=== PATIENT | female | born 1960 | race Caucasian/White ===

== ENCOUNTER 2018-05-27 07:31 | Emergency (ER) | payer OTHER, SELFPAY ==
[2018-05-27 07:34] VITALS: BP 146/76; PULSE 99; RESP 15; TEMP 36.6; BMI 21.9
--- NOTE | 2018-05-27 07:49 | RAD_ITS ---
STUDY: X-RAY - PELVIS REASON FOR EXAM: Female, 57 years old. Left hip pain and groin pain after a fall. TECHNIQUE: One view of the pelvis was obtained. COMPARISON: Prior comparison studies are not available for review at this time. FINDINGS: There is a non-specific bowel gas pattern. Normal visualized soft tissue structures. There is diffuse demineralization of the osseous structures. The sacrum and iliac wings are obscured by bowel gas and stool. There is an acute comminuted displaced fracture of the left pubic bone that probably involves both the superior and inferior pubic rami. There are degenerative changes of the pubic symphysis with articular narrowing and sclerosis. Normal ischial tuberosities. There are osteoarthritic changes of the right femoral head with marginal osteophyte formation. There is osteoarthritic spur formation of the right acetabular rim. There is mild articular joint space narrowing of the right hip. Normal visualized left femoral head. Normal left acetabulum. Normal left hip joint. RAD/Pelvis 1 or 2 Views IMPRESSION: Acute comminuted displaced fracture of the left pubic bone. Electronically Signed: Harleen Reynolds MD at 8:32 EST , Service support ,
--- NOTE | 2018-05-27 07:52 | ED.VISSUMM ---
- ER Visit Summary Date of Service: 05/27/18 Chief Complaint: Left hip injury History of Present Illness: The patient is a 57 F who was at [employer] this morning performing a cleaning. She states that she lost her balance and fell down towards the left hip the bar came down over her mid to distal thigh forcing the hip and to abduction. She notes pain with movement of the hip. She states that the mid to distal thigh is not painful. She denies any other injuries Physical Examination: Afebrile vital signs are stable Gen: Well-nourished well-developed Head: Normocephalic atraumatic Eyes: Perrl EOMI ENT: TMs clear no rhinorrhea moist mucous membranes Neck: Supple no lymphadenopathy no JVD nontender CVS: Regular rate rhythm no murmurs normal S1-S2 Respiratory: No distress clear to auscultation bilaterally chest nontender Abdomen: Soft nontender nondistended normal bowel sounds no masses Back: Nontender Extremity: Tenderness over the medial thigh. She has pain with abduction. No pain with flexion extension. No pain with logroll. No deformities. Neurovascular intact distally Skin: Normal color no rash Neuro: alert orientated ?3 CN II-XII intact normal strength sensation reflexes Psych: Normal affect normal mood Test Results: X-rays of the pelvis were obtained. This demonstrated pubic rami fracture Emergency Department Course and Treatment: Patient is unable to do crutches due to her multiple sclerosis. Will use a walker. I will write for pain medication. Patient would like to see Dr. Wolfe in follow-up. Impression: 1. Left pubic rami fracture 2. Abductor muscle strain-left This note was generated with [employer] dictation software. It may contain incorrect words, spelling, and punctuation that were not noted in review of the chart prior to signing ED Disposition - Plan for ED Patient: Disposition: Home or Assisted Living Chief Complaint: Lower Extremity Injury Instructions: ED Fx Pelvis Prescriptions: Hydrocodone Bitart/Apap 5-325 [[place] 5MG-325MG] 1 tablet PO Q6H PRN PRN 3 Days #12 tablet PRN Reason: Pain Referrals: Stef Wolfe DO [STAFF PHYSICIAN] - As soon as possible
[2018-05-27] MEDS: Ibuprofen 600 MG Tablet PO (07:56)
== END 2018-05-27 08:50 | disposition home or self-care (01) ==
PROVIDERS: Emergency Provider Emergency Medicine; Family Provider Family Medicine; PCP Family Medicine
DX: S32.592A Other specified fracture of left pubis, initial encounter for closed fracture (principal); S76.812A Strain of other specified muscles, fascia and tendons at thigh level, left thigh, initial encounter; W22.8XXA Striking against or struck by other objects, initial encounter; Y93.B9 Activity, other involving muscle strengthening exercises; G35 Multiple sclerosis; Z87.891 Personal history of nicotine dependence
CPT/HCPCS: 72170; 99283

== ENCOUNTER → 2018-06-07 14:08 | Outpatient (CLI) | payer OTHER, SELFPAY ==
[2018-05-27 07:34] VITALS: BMI 21.9
--- NOTE | 2018-06-07 14:15 | CT_ITS ---
STUDY: CT PELVIS WITHOUT CONTRAST REASON FOR EXAM: Female, 57 years old. Pelvic fractures from injury. RADIATION DOSAGE (If Supplied By Facility): CTDIvol = ( 13.20 ) mGy, DLP = ( 369.16 ) mGycm TECHNIQUE: Transaxial imaging of the pelvis was performed with oral contrast, and without intravenous administration of contrast material. Multiplanar coronal and sagittal images were reformatted. Individualized dose optimization techniques were used for this CT. COMPARISON: Comparison is made with prior examination of the pelvis dated May 27, 2018. FINDINGS: Normal urinary bladder. Normal visualized small intestine. Normal visualized colon. There is no pelvic fluid. There is no pelvic mass lesion or lymphadenopathy. There is diffuse atherosclerotic calcification of the pelvic arteries. Normal abdominal wall. Nondisplaced fractures involving the medial aspect of the left superior and inferior pubic rami just lateral to the symphysis pubis. CT/Pelvis without IV Contrast IMPRESSION: Nondisplaced fractures involving the medial aspect of the left superior and inferior pubic rami. Electronically Signed: Toro Georges MD at 15:18 EST Tel [phone], Service support ,
--- OUTSIDE RECORDS SUMMARY | 2018-08-03 03:48 | XMS RPT_ITS ---
:1960 Author Organization [place] Care Team Providers Name Role Phone Tramaine Small Attending Unavailable Tramaine Small Referring Unavailable Josh Doe III Primary Care Unavailable Lamin Horn Attending Unavailable Josh Doe III Primary Care Unavailable PROBLEMS PROBLEMS DATE TYPE CONDITION / CODE ATTENDING STATUS SOURCE 05/27/2018 Unknown S32.599A - Other Lamin Horn Active [place] specified Community fracture of Hospital unspecified Repository pubis, initial encounter for closed fracture / S32.599A(ICD-10) PROCEDURES PROCEDURES No Procedure Records FoundRESULTS RESULTS PELVIS WITHOUT IV Observed: 06/07/2018 Status: F Source: [place] CONTRAST 2:15 PM [facility] REPOSITORY [facility] Imaging Services [address] [address] Pelvis without IV Contrast MR#: [id number] Acct: [id number] Name: TAYLA ALBARRAN Rep #: [id number] : 1960 F 57 From: Toro Georges MD PCP: Josh Doe III, MD Status: REG CLI Study: Pelvis without IV Contrast Date of Exam: 06/07/18 Exam# [id number] Ordering Dr: Tramaine Small MD STUDY: CT PELVIS WITHOUT CONTRAST REASON FOR EXAM: Female, 57 years old. Pelvic fractures from injury. RADIATION DOSAGE (If Supplied By Facility): CTDIvol = ( 13.20 ) mGy, DLP = ( 369.16 ) mGycm TECHNIQUE: Transaxial imaging of the pelvis was performed with oral contrast, and without intravenous administration of contrast material. Multiplanar coronal and sagittal images were reformatted. Individualized dose optimization techniques were used for this CT. COMPARISON: Comparison is made with prior examination of the pelvis dated May 27, 2018. FINDINGS: Normal urinary bladder. Normal visualized small intestine. Normal visualized colon. There is no pelvic fluid. There is no pelvic mass lesion or lymphadenopathy. There is diffuse atherosclerotic calcification of the pelvic arteries. Normal abdominal wall. Nondisplaced fractures involving the medial aspect of the left superior and inferior pubic rami just lateral to the symphysis pubis. CT/Pelvis without IV Contrast IMPRESSION: Nondisplaced fractures involving the medial aspect of the left superior and inferior pubic rami. Electronically Signed: Toro Georges MD at 15:18 EST Tel [phone], Service support , CC: Josh Doe III, MD; Tramaine Small MD Mother Superior: Signed EMERGENCY DEPARTMENT Observed: 05/30/2018 Status: F Source: [place] SUMMARY 2:54 PM [facility] REPOSITORY [facility] Medical Records Department [address] [place] [address] Emergency Department Summary 05/27/18 0752 MR#: [id number] Acct: [id number] Name: TAYLA ALBARRAN MIGUEL A Rep #: [id number] : 1960 57 From: Lamin Horn DO PCP: Cebul III MD,Josh Status: DEP ER - ER Visit Summary Date of Service: 05/27/18 Chief Complaint: Left hip injury History of Present Illness: The patient is a 57 F who was at [employer] this morning performing a cleaning. She states that she lost her balance and fell down towards the left hip the bar came down over her mid to distal thigh forcing the hip and to abduction. She notes pain with movement of the hip. She states that the mid to distal thigh is not painful. She denies any other injuries Physical Examination: Afebrile vital signs are stable Gen: Well-nourished well-developed Head: Normocephalic atraumatic Eyes: Perrl EOMI ENT: TMs clear no rhinorrhea moist mucous membranes Neck: Supple no lymphadenopathy no JVD nontender CVS: Regular rate rhythm no murmurs normal S1-S2 Respiratory: No distress clear to auscultation bilaterally chest nontender Abdomen: Soft nontender nondistended normal bowel sounds no masses Back: Nontender Extremity: Tenderness over the medial thigh. She has pain with abduction. No pain with flexion extension. No pain with logroll. No deformities. Neurovascular intact distally Skin: Normal color no rash Neuro: alert orientated 3 CN II-XII intact normal strength sensation reflexes Psych: Normal affect normal mood Test Results: X-rays of the pelvis were obtained. This demonstrated pubic rami fracture Emergency Department Course and Treatment: Patient is unable to do crutches due to her multiple sclerosis. Will use a walker. I will write for pain medication. Patient would like to see Dr. Wolfe in follow-up. Impression: 1. Left pubic rami fracture 2. Abductor muscle strain-left This note was generated with [employer] dictation software. It may contain incorrect words, spelling, and punctuation that were not noted in review of the chart prior to signing ED Disposition - Plan for ED Patient: Disposition: Home or Assisted Living Chief Complaint: Lower Extremity Injury Instructions: ED Fx Pelvis Prescriptions: Hydrocodone Bitart/Apap 5-325 [[place] 5MG-325MG] 1 tablet PO Q6H PRN PRN 3 Days #12 tablet PRN Reason: Pain Referrals: Stef Wolfe, DO [STAFF PHYSICIAN] - As soon as possible What to do if you have Problems For any increased pain, shortness of breath, bleeding, nausea or vomiting, chest pain, or any unexpected problems, contact your Primary Care Provider. Call [facility] ([phone]) or report to the closest Emergency Room. Call 911 if necessary. 05/30/18 1454 <Electronically signed by Lamin Horn DO> Date Lamin Horn DO Cosigner Signature (If Indicated): Date CC: Josh Doe III, MD PELVIS 1 OR 2 VIEWS Observed: 05/27/2018 Status: F Source: [place] 7:50 AM [facility] REPOSITORY [facility] Imaging Services [address] [place] [address] Pelvis 1 or 2 Views MR#: [id number] Acct: [id number] Name: TAYLA ALBARRAN MIGUEL A Rep #: [id number] : 1960 F 57 From: Harleen Reynolds MD PCP: Josh Doe III, MD Status: REG ER Study: Pelvis 1 or 2 Views Date of Exam: 05/27/18 Exam# [id number] Ordering Dr: Lamin Horn DO STUDY: X-RAY - PELVIS REASON FOR EXAM: Female, 57 years old. Left hip pain and groin pain after a fall. TECHNIQUE: One view of the pelvis was obtained. COMPARISON: Prior comparison studies are not available for review at this time. FINDINGS: There is a non-specific bowel gas pattern. Normal visualized soft tissue structures. There is diffuse demineralization of the osseous structures. The sacrum and iliac wings are obscured by bowel gas and stool. There is an acute comminuted displaced fracture of the left pubic bone that probably involves both the superior and inferior pubic rami. There are degenerative changes of the pubic symphysis with articular narrowing and sclerosis. Normal ischial tuberosities. There are osteoarthritic changes of the right femoral head with marginal osteophyte formation. There is osteoarthritic spur formation of the right acetabular rim. There is mild articular joint space narrowing of the right hip. Normal visualized left femoral head. Normal left acetabulum. Normal left hip joint. RAD/Pelvis 1 or 2 Views IMPRESSION: Acute comminuted displaced fracture of the left pubic bone. Electronically Signed: Harleen Reynolds MD at 8:32 EST , Service support , CC: Lamin Doe III, MD Mother Superior: Signed ALLERGIES ALLERGIES DATE TYPE / CODE NAME / CODE REACTION SEVERITY SOURCE 05/27/2018 Drug trifluoperaz Other Unknown [facility] Allergy/4160 [facility]/[id number] Hospital 90455(SNOMED 90(RXNORM) Repository CT) ENCOUNTERS ENCOUNTERS ADMIT/DISCHARGE ACCOUNT ADMITTING ENCOUNTER LOCATION SOURCE NUMBER CLASS 06/07/2018 [id number] Ambulatory [facility] 1 [facility] ing:CT Repository 05/27/2018/ [id number] Emergency [facility] 8 7 [facility] ing:ED Repository PAYERS PAYERS ENCOUNTER GUARANTOR PAYER SUBSCRIBER SOURCE 06/07/2018 JAKOB Parker Primary TAYLA Katzoster [id number] Insurance:MEDICAL MARCUMDOB: [facility] [id number] Number: Repository [id number]: [phone] [id number] [phone] () Date:2079-10-[address] [address]UL: 06/07/2018 Secondary NOT GIVENUNK [place] Insurance:SELF PAY [facility] Number: Effective Repository Date:2018-05-30 05/27/2018 JAKOB Parker Primary TAYLA GRADY [place] [id number] Insurance:[facility]ICAL [facility] WESTUMDOB: [facility] 1965[place] Number: Repository [id number]: [phone] [id number] [phone] () Date:9883-25-[address] [address]WP: 05/27/2018 Secondary NOT GIVENUNK [place] Insurance:SELF PAY [facility]: Effective Repository Date:2018-05-27
== END ==
PROVIDERS: Family Provider Family Medicine; PCP Family Medicine; Referring Provider Specialist; Visit Provider Specialist
DX: S32.82XA Multiple fractures of pelvis without disruption of pelvic ring, initial encounter for closed fracture (principal)
CPT/HCPCS: 72192

== ENCOUNTER 2020-01-26 19:04 | Emergency (ER) | payer OTHER, SELFPAY ==
[2020-01-26 19:05] VITALS: BP 142/82; PULSE 97; RESP 15; TEMP 36.7; O2SAT 98; BMI 24.7
--- NOTE | 2020-01-26 19:22 | ED.DCSUM_ITS ---
History of Present Illness Chief Complaint: Laceration Informant: Patient Narrative: Patient is a 59-year-old female with a past medical history of MS who presents to the emergency department for right pinky finger injury. She was in [place] this morning whenever her grandchild shut the door on her finger. Her finger was stuck on the hinge side of the door and frame. There is a laceration present. She put a Band-Aid over it and they drove back to [place]. She felt like the pain and swelling was getting worse so she decided to come to the emergency department. There is still some venous bleeding present. She denies any loss of sensation in the finger. He is right-handed at baseline. No other injury to the hand or elsewhere. No anticoagulation or antiplatelet therapy. Moving does make the symptoms worse. Past Medical History - Allergies and Home Meds Allergies/Adverse Reactions: Allergies trifluoperazine [From Stelazine] Allergy (Verified 01/26/20 19:07) Other STROKE LIKE SX Primary Care Physician: Josh Doe III, MD [Primary Care Provider] - Past Medical History: - - Multiple sclerosis Surgical History: no surgical history Smoking Status: Former smoker Review of Systems All systems negative except as indicated General: Denies: Chills, Fever ENT: Denies: Rhinorrhea Cardiovascular: Denies: Chest pain, Palpitations Respiratory: Denies: Dyspnea, Cough Gastrointestinal: Denies: Abdominal pain, Nausea, Vomiting Musculoskeletal: Reports: Swelling, Extremity Pain - Finger. Denies: Myalgias Skin: Reports: Wounds Neurological: Denies: Headache, Weakness Physical Exam Vital Signs/Narrative: Vital Signs Temp Pulse Resp BP Pulse Ox 01/26/20 19:05 98.0 F 97 15 142/82 H 98 Inital Vital Signs reviewed: Yes General: Well nourished, Well developed, No Acute Distress Head: Normocephalic, Atraumatic Eyes: Perrl, EOMI ENT: Moist mucous membranes, No rhinorrhea Neck: Supple Cardiovascular: Regular rate, Regular rhythm Respiratory: No distress, CTA bilaterally Abdomen: Nondistended Extremities: - - Right pinky finger has a laceration that wraps around the distal aspect from her nail to the ventral aspect. Venous oozing present. The tip of the finger does feel unstable. Skin: Normal color, No rash Neurological: Alert, Oriented x3, Normal Strength, Normal Sensation Psychological: Normal affect, Normal Mood Diagnostic/Tx/Re-eval - Medical Decision Making Patient presents the emerge department after having her finger slammed in a door around 730 this morning. On physical exam there is a deformity present with a laceration. Will obtain an x-ray to evaluate for open fracture. X-ray did show evidence of a comminuted fracture to the tuft. We will treat this as an open fracture. Given dose of Ancef here in the emergency department. Will send home with prescription for Keflex. Patient states her last tetanus shot was less than a year ago. Patient's laceration repaired and placed in a splint. Will discharge home in stable condition. She is to follow-up with [facility] and orthopedic surgery. She is to monitor for evidence of infection. If she develops any significant warmth, swelling or streaking up the hand she is to return to the emerge department immediately. She understands and is agreeable with this plan. Procedures Procedure(s): Laceration repair: Informed consent was obtained before procedure started. The appropriate timeout was taken. The area was prepped and draped in the usual sterile fashion. Local anesthesia was achieved using digital block with 4cc of lidocaine 1% without epinephrine. The wound was copiously irrigated with 250 cc normal saline. 4 5-0 Ethilon simple interrupted sutures were placed. Wound covered in antibiotic ointment and a dressing/splint was applied to the area and anticipatory guidance, as well as standard post procedure care, was explained. Return precautions are given. The patient tolerated the procedure well without any apparent complications. Unfortunately nail will probably be lost. The nail matrix seem to be damaged. Follow-up visit set for suture removal and evaluation of laceration. ED Disposition - Plan for ED Patient: Disposition: Home or Assisted Living Diagnosis: Open fracture of tuft of distal phalanx of finger Instructions: ED Fx Finger Open Prescriptions: Cephalexin [Keflex] 500 mg PO Q8 7 Days #21 cap Transmission Status: Pending to [facility] Referrals: Josh Doe III, MD [Primary Care Provider] - [facility] [Outside] - 2 Days for wound check Additional Instructions: Need suture removal in 7 to 10 days. Please monitor for evidence of infection.
--- NOTE | 2020-01-26 19:28 | RAD_ITS ---
STUDY: X-RAY - RIGHT HAND, ATTENTION WITH FINGER REASON FOR EXAM: Female, 59 years old. pt got her right pinky finger in a door, laceration on distal pinky finger TECHNIQUE: 3 view(s) of the finger were obtained. COMPARISON: None. FINDINGS: Normal metacarpal head. Normal metacarpophalangeal joint. Normal proximal phalanx. Normal middle phalanx. There is a comminuted displaced fracture of the distal phalangeal tuft. Normal proximal interphalangeal joint. Normal distal interphalangeal joint. RAD/Finger(s) Min 2 Views IMPRESSION: Comminuted displaced fracture of the fifth distal phalangeal tuft. Electronically Signed: Moises Russ MD at 19:49 EDT , Service support ,
[2020-01-26] MEDS: Cefazolin 1 GM/5 ML Vial IM (21:13)
[2020-01-26 21:27] VITALS: BP 149/85; PULSE 88; RESP 16; O2SAT 99
== END 2020-01-26 21:34 | disposition home or self-care (01) ==
PROVIDERS: Emergency Provider Emergency Medicine; PCP Family Medicine
DX: S62.636B Displaced fracture of distal phalanx of right little finger, initial encounter for open fracture (principal); W23.0XXA Caught, crushed, jammed, or pinched between moving objects, initial encounter; Y93.9 Activity, unspecified; Y92.832 Beach as the place of occurrence of the external cause; Y99.8 Other external cause status; G35 Multiple sclerosis; Z87.891 Personal history of nicotine dependence
CPT/HCPCS: 12001; 73140; 96372; 99283

== ENCOUNTER 2023-01-17 11:08 | Observation (INO) | payer OTHER, SELFPAY ==
[2023-01-17] VITALS (10 sets, daily range): BP systolic 128–159; BP diastolic 64–100; PULSE 66–101; RESP 16–20; TEMP 36.6–36.9; O2SAT 95–98; BMI 22.5; BMI 23.1
--- NOTE | 2023-01-17 11:15 | CT_ITS ---
STUDY: CTA HEAD AND NECK WITH CONTRAST REASON FOR EXAM: Female, 62 years old. Neuro deficit, acute, stroke suspected left facial droop, hx MS RADIATION DOSAGE (If Supplied By Facility): CTDIvol = ( 16.23 ) mGy, DLP = ( 601.01 ) mGycm TECHNIQUE: CT angiography was performed with a multi-detector CT scanner. Data acquisition was obtained from the skull base through the vertex following intravenous administration of IV 100mL Isovue-370. MIP images were reconstructed from the axial data set. Post-processing of the angiographic images was performed, with multiplanar reformation and 3D reconstruction. Individualized dose optimization techniques were used for this CT. COMPARISON: Head CT dated January 17, 2023. FINDINGS: Normal bilateral petrous carotid arteries. There is calcified plaque formation of the right cavernous carotid artery, with a mild stenosis (less than 50%). There is calcified plaque formation of the left cavernous carotid artery, with a mild stenosis (less than 50%). Normal right A1 segments of the anterior cerebral artery. Normal left A1 segments of the anterior cerebral artery. Normal intact anterior communicating artery (ACOM). Normal bilateral A2 segments of the anterior cerebral arteries. Normal right M1 and M2 segments of the middle cerebral arteries, with a normal M1 bifurcation. Normal left M1 and M2 segments of the middle cerebral arteries, with a normal M1 bifurcation. Normal right posterior communicating artery (PCOM). Normal left posterior communicating artery (PCOM). Normal bilateral vertebral arteries. Normal basilar artery with a normal basilar bifurcation. The visualized bilateral superior cerebellar (SCA) arteries are normal. Normal bilateral P1, P2 and visualized P3 segments of the posterior cerebral arteries. There is no demonstrated aneurysm of the [place]. AORTIC ARCH: There is atherosclerotic calcific plaque formation of the aortic arch and great vessels arising from the aortic arch, without a hemodynamically significant stenosis. There is a normal origin of the brachiocephalic, left common carotid, and left subclavian arteries. Normal origins of the brachiocephalic, left common carotid, and left subclavian arteries. RIGHT CAROTID ARTERIES: Normal right common carotid artery (CCA). Normal right common carotid bulb. Normal origin of the right internal carotid (ICA) artery without a hemodynamically significant stenosis. Normal visualized cervical portion of the right internal carotid artery. Normal origin of the right external carotid artery (ECA). LEFT CAROTID ARTERIES: Normal left common carotid artery (CCA). Normal left common carotid bulb. Normal origin of the left internal carotid (ICA) artery without a hemodynamically significant stenosis. Normal visualized cervical portion of the left internal carotid artery. Normal origin of the left external carotid artery (ECA). VERTEBRAL ARTERIES: Normal bilateral vertebral arteries. CT/STROKE CTA Head AND Neck W/Con IMPRESSION: 1. There is no demonstrated aneurysm of the [place] of [place]. There is no major vessel occlusion or hemodynamically significant stenosis. 2. Normal bilateral cervical carotid and vertebral arteries. N.B. : The above Results were Read Back by Cdoy Rios MD to Wally Alva DO, and understanding confirmed on 01/17/2023 11:47:22 (ET). Electronically Signed: Cody Rios MD at 11:49 EDT ,
--- NOTE | 2023-01-17 11:15 | CT_ITS ---
STUDY: STROKE PROTOCOL CT BRAIN WITHOUT CONTRAST REASON FOR EXAM: Female, 62 years old. Neuro deficit, acute, stroke suspected RADIATION DOSAGE (If Supplied By Facility): CTDIvol = ( ) mGy, DLP = ( ) mGycm TECHNIQUE: Transaxial CT imaging of the brain was performed without administration of intravenous contrast material. Individualized dose optimization techniques were used for this CT. COMPARISON: None. FINDINGS: Normal soft tissue structures. Normal calvarium. There is mild cerebral atrophy with widening of the extra-axial spaces and ventricular dilatation. There are areas of decreased attenuation within the white matter tracts of the supratentorial brain, consistent with microvascular disease changes. Normal basal ganglia and thalami. Normal brainstem. Normal cerebellum. There is no demonstrated asymmetric dense artery sign or sulcal effacement or parenchymal edema. There is no intracranial hemorrhage. There are no findings of an acute ischemic infarction. Normal visualized paranasal sinuses. ASPECTS Score for Acute Strokes: 10 CT/STROKE Brain/Head without Cont IMPRESSION: 1. Chronic ischemic and involutional changes of the brain. 2. Concern for stroke/positive symptomatology should be further evaluated with CT brain perfusion/CTA or MRI of the brain for further assessment. N.B. : The above Results were Read Back by Cody Rios MD to Wally Alva DO, and understanding confirmed on 01/17/2023 11:44:28 (ET). Electronically Signed: Cody Rios MD at 11:45 EDT ,
--- NOTE | 2023-01-17 11:16 | ED.VIS.STROK ---
HPI History of Present Illness Chief Complaint: Neuro S/Sx Informant: patient and spouse/S.O. Onset/Context/Timing Onset: Yesterday Narrative Narrative: Presenting here with significant other concerns for left lip droop noted 6 AM this morning 5 hours ago. States 3 PM noted some off on her left face however did not note any drooping at that time. No headaches. No visual changes. No hemiparesis. Denies stroke history. History of MS with chronic bilateral lower extremity weakness right greater than left EMS with a walker. Denies any stroke history. No paresthesias. Prior similar symptoms: No PFSH PFSH Medical History (Updated 01/17/23 @ 12:[address] Wally Alva DO) Multiple sclerosis Home Medications NK 01/17/23 [History Last Taken Unknown] Allergy/AdvReac Type Severity Reaction Status Date / Time trifluoperazine Allergy Other Verified 01/26/20 19:07 [From Stelazine] Social History Smoking Status: Former smoker ROS ROS ED Constitutional Constitutional ED: Denies chills, fever(s) or sweats Eyes Eyes: Denies change in vision ENT ENT ED: Denies dysphagia or sore throat Cardiovascular Cardiovascular: Denies chest pain, leg edema, palpitations or racing heartbeat Respiratory/Chest Respiratory/Chest: Denies cough, dyspnea or dyspnea on exertion Gastrointestinal Gastrointestinal: Denies abdominal pain, diarrhea, nausea or vomiting Genitourinary Genitourinary ED: Denies dysuria, hematuria or urinary frequency Musculoskeletal Musculoskeletal: Denies back pain, extremity pain or neck pain Integumentary Denies rash or wounds Neurologic Neurologic: Reports other Details: Left lip droop ; Denies headache(s), paresthesias or weakness EXAM Physical Exam Const Vital Signs: 01/17/23 11:10 01/17/23 11:27 01/17/23 11:29 Temperature 97.8 F Temperature Source Temporal Pulse Rate 101 H Respiratory Rate 20 H Blood Pressure 149/87 H Blood Pressure Mean 107 Pulse Ox 97 95 Oxygen Delivery Method Room Air Room Air 01/17/23 11:45 Temperature Temperature Source Pulse Rate 84 Respiratory Rate 19 H Blood Pressure 154/100 H Blood Pressure Mean 118 Pulse Ox 97 Oxygen Delivery Method Room Air Positive well nourished and well developed General Appearance ED: well developed and NAD HEENT Reports moist mucous membranes normocephalic and atraumatic Eyes PERRL, EOMs intact bilaterally and conjunctivae normal General Eye ED: Yes normal appearance of both eyes Neck no lymphadenopathy and supple General: Negative for tenderness Chest Wall Chest: Negative for tenderness Resp normal respiratory effort and normal air movement Effort and Inspection: symmetric chest movement; Negative for respiratory distress Cardio regular rate, regular rhythm and no murmurs Peripheral Pulses: pulses 2+ throughout GI normal to inspection, nondistended, normoactive bowel sounds and non-tender Palpation: Negative for guarding or rebound tenderness present Back/Spine no CVA tenderness and no thoracic nor lumbar tenderness Extremity normal to inspection General Extremety ED: Negative for edema or tenderness General Extremity: Negative for edema Neuro oriented x3 and no sensory deficits noted Neuro Narrative: Minimal left lip droop. There is bilateral lower extremity drifting however chronic. NIH of 1 with new droop symptoms. Sensorium / Orientation: awake and alert Skin no rashes or lesions noted and no wounds MDM MDM MDM Narrative Medical decision making narrative: Interventions / MDM: Differential diagnosis: CVA, multiple sclerosis Diagnosis considered but do not suspect: N/A My EKG interpretation: Sinus rate of 84, no ST or T wave changes Imaging independently reviewed and interpreted by myself: CT brain: No acute process also read by radiology. CT angiogram and discussion with radiology no acute process mild calcification internal carotids. External documents reviewed: N/A Test considered but not ordered:N/A ED course: Patient new symptoms with NIH of 1. Symptoms noted 3 PM yesterday less than 20 hours ago, with new droop noting 5 hours ago. Stroke team was activated. Patient evaluated by neurology Dr. Antonette Garzon, discussion bedside through the monitor not a candidate for TNK due to timeframe. There is no LVO. She recommend mission for stroke work-up with MRI studies with and without contrast due to her MS to rule out a flare. Patient does not take daily medications. She has had MS since 1985. She states her last MRI was in 2019 with no acute new changes per patient's history. No steroids unless MRI has concerns for worsening MS findings. Laboratory studies stable. Discussed with hospitalist service for admission. Re-evaluation: stable Disposition discussed with patient/family/significant other: Patient and significant other Case discussed with consulting clinician: Stroke neurologist Dr. Antonette Garzon, hospitalist, Dr. Richard This note was generated with [employer] dictation software. It may contain incorrect words, spelling, and punctuation that were not noted in checking the note before signing. Lab Data Attestation: I reviewed the patient's lab results. Labs: Laboratory Results - last 24 hr 01/17/23 01/17/23 11:28 11:30 WBC 11.1 H RBC 4.53 Hgb 14.5 Hct 43.4 MCV 95.8 MCH 32.0 MCHC 33.4 RDW Std Deviation 49.3 H RDW Coeff of [place] 14.0 Plt Count 463 H MPV 9.3 Immature Gran % (Auto) 0.500 Neut % (Auto) 66.8 Lymph % (Auto) 23.5 [place] % (Auto) 7.1 Eos % (Auto) 0.9 Baso % (Auto) 1.2 H Absolute Neuts (auto) 7.4 Absolute Lymphs (auto) 2.60 Nucleated RBC % 0 PT 12.8 INR 1.0 APTT 27.6 Sodium 141 Potassium 3.7 Chloride 109 H Carbon Dioxide 30.0 Anion Gap 2 L BUN 14 Creatinine 0.62 Estim Creat Clear Calc 79.16 Est GFR (MDRD) Af Amer 125 Est GFR (MDRD) Non-Af 103 BUN/Creatinine Ratio 22.6 H Glucose 88 Calcium 9.4 Troponin I High Sens 4 POC Glucose 85 Radiography Diagnostic Testing: Clinical Impression(s) from Imaging Studies Brain CT 01/17/23 11:15 IMPRESSION: 1. Chronic ischemic and involutional changes of the brain. 2. Concern for stroke/positive symptomatology should be further evaluated with CT brain perfusion/CTA or MRI of the brain for further assessment. N.B. : The above Results were Read Back by Cody Rios MD to Wally Alva DO, and understanding confirmed on 01/17/2023 11:44:28 (ET). Electronically Signed: Cody Rios MD at 11:45 EDT , ADDENDUM: 01/17/23 1152 IMPRESSION: 1. Chronic ischemic and involutional changes of the brain. 2. Concern for stroke/positive symptomatology should be further evaluated with CT brain perfusion/CTA or MRI of the brain for further assessment. N.B. : The above Results were Read Back by Cody Rios MD to Wally Alva DO, and understanding confirmed on 01/17/2023 11:44:28 (ET). Electronically Signed: Cody Rios MD at 11:45 EDT Reading Location ID and State: [facility] / [place] , Service support , Head/Neck CTA 01/17/23 11:15 IMPRESSION: 1. There is no demonstrated aneurysm of the [place]. There is no major vessel occlusion or hemodynamically significant stenosis. 2. Normal bilateral cervical carotid and vertebral arteries. N.B. : The above Results were Read Back by Cody Rios MD to Wally Alva DO and howie confirmed on 01/17/2023 11:47:22 (ET). Electronically Signed: Cody Rios MD at 11:49 EDT Reading Location ID and State: [facility] / [place] , Service support , ADDENDUM: 01/17/23 1155 IMPRESSION: 1. There is no demonstrated aneurysm of the [place]. There is no major vessel occlusion or hemodynamically significant stenosis. 2. Normal bilateral cervical carotid and vertebral arteries. N.B. : The above Results were Read Back by Cody Rios MD to Wally Alva DO and understanding confirmed on 01/17/2023 11:47:22 (ET). Electronically Signed: Cody Rios MD at 11:49 EDT , Chest X-Ray 01/17/23 11:50 IMPRESSION: Normal x-ray examination of the chest. Electronically Signed: Cody Rios MD at 12:59 EDT , Stroke Documentation Questions Stroke Team Activated: Yes Reviewed Inclusion/Exclusion criteria: No IV Thrombolytic Administered: No Critical Care Time Critical Care Time: Yes Critical care time (excluding procedures): 30-74 minutes, Discussing w/Patient &/or Family/Chief Librarian Circulation Department, Discussing w/Consultants, Arranging Admission or Transfer, Performing Direct Patient Care at Bedside and - (30 minutes) Discharge Plan Dx/Rx/DC Orders Clinical Impression: Brain TIA, Bilateral leg weakness, Multiple sclerosis Disposition Disposition: [facility] NIHSS NIHSS 1a. Level of Consciousness: Alert; keenly responsive 1b. LOC Questions: Answers BOTH questions correctly. 1c. LOC Commands: Performs both tasks correctly. 2. Best Gaze: Normal 3. Visual: No visual loss 4. Facial Palsy: Minor paralysis (flattened nasolabial fold, asymmetry on smiling) 5a. Left Arm: No drift; arm holds 90 (or 45) degrees for full 10 seconds 5b. Right Arm: No drift; arm holds 90 (or 45) degrees for full 10 seconds 6a. Left Leg: Drift; leg falls by the end of 5-seconds, but does not hit bed 6b. Right Leg: Drift; leg falls by the end of 5-seconds, but does not hit bed 7. Limb Ataxia: Absent 8. Sensory: Normal; no sensory loss 9. Best Language: No aphasia; normal 10. Dysarthria: Normal 11. Extinction and Inattention: No abnormality Total: 3 Stroke Questions Stroke Team Activated: Yes a.Reviewed Inclusion/Exclusion criteria: No Was Patient considered for Endovascular Intervention?: No IV Thrombolytic Administered: No
--- NOTE | 2023-01-17 11:29 | ED.RN ---
bilat leg weakness d/t ms.
[2023-01-17 11:42] LABS: Absolute Neutrophil Count 7.4 X10^3/uL (2.0-7.7); Basophil# 0.13 X10^3/uL; Basophil% 1.2 % (0-1); Eosinophils% 0.9 % (0-5); Hematocrit 43.4 % (37-47); Hemoglobin 14.5 g/dL (12.0-15.0); Lymphocyte % 23.5 % (19-41); Mean Corp Hgb Conc 33.4 g/dL (32-36); Mean Corpuscular Volume 95.8 fL (81-99); Mean Platelet Vol. 9.3 fl (6.2-12.0); Monocyte# 0.79 X10^3/uL; Monocyte% 7.1 % (0-10); NRBC Flagged by Analyzer 0 % (0-5); Neutrophil # 7.41 X10^3/uL (2.7-7.7); Neutrophil % 66.8 % (47-70); Platelet Count 463 K/mm3 (150-450); RBC Distribution Width SD 49.3 fl (35.1-43.9); Red Blood Count 4.53 M/mm3 (4.2-5.4); White Blood Count 11.1 K/mm3 (4.4-11.0)
[2023-01-17 11:47] LABS: Prothrombin Time (Protime)PT. 12.8 SECONDS (11.7-14.9)
[2023-01-17 11:48] LABS: Bedside Glucose 85 mg/dL (74-106)
[2023-01-17 11:48] LABS: Partial Thromboplast Time 27.6 Seconds (24.1-36.2)
--- NOTE | 2023-01-17 11:50 | RAD_ITS ---
STUDY: X-RAY CHEST REASON FOR EXAM: Female, 62 years old. Neuro deficit, acute, stroke suspected TECHNIQUE: Single AP portable view of the chest. COMPARISON: None. FINDINGS: The lungs are clear and expanded. There is no demonstrated pleural abnormality. Normal size heart. Normal mediastinum and [place]. Normal visualized pulmonary arteries. Normal visualized aortic arch and descending thoracic aorta. Normal visualized thoracic spine. Normal visualized ribs, clavicles, and shoulders. There is no demonstrated abnormality of the visualized soft tissue structures of the upper abdomen. RAD/Chest 1 View IMPRESSION: Normal x-ray examination of the chest. Electronically Signed: Cody Rios MD at 12:59 EDT ,
[2023-01-17 11:59] LABS: Anion Gap 2 (5-15); BUN 14 mg/dL (7-18); BUN/Creat Ratio 22.6 RATIO (10-20); Calcium,Total 9.4 mg/dL (8.5-10.1); Chloride 109 mmol/L (98-107); Creatinine, Serum 0.62 mg/dL (0.55-1.02); EST Glomerular Filtration Rate 103 mL/min (>60); Est Glom Filt Rate - Afr Amer 125 mL/min (>60); Estimated Creatinine Clearance 79.16 ml/min; Glucose 88 mg/dL (74-106); Potassium 3.7 mmol/L (3.5-5.1); Sodium Level 141 mmol/L (136-145); Troponin-I HS 4 pg/mL (3.0-54.0)
--- NOTE | 2023-01-17 12:09 | EKG12_ITS ---
Test Reason : POSS STROKE Blood Pressure : / mmHG Vent. Rate : 084 BPM Atrial Rate : 084 BPM P-R Int : 144 ms QRS Dur : 078 ms QT Int : 368 ms P-R-T Axes : 074 034 056 degrees QTc Int : 434 ms Normal sinus rhythm Normal ECG Confirmed by GISELLE MARTINEZ, SYLVIA ([id number]), development editor DANIEL CRUZ ([id number]) on 01/19/2023 8:27:18 AM Referred By: TL Confirmed By:SYLVIA DESAI MD
--- NOTE | 2023-01-17 12:31 | HP.PCM.HOS_ITS ---
HPI - General General Date of Admission: 01/17/23 Date of Service: 01/17/23 Chief Complaint: Left-sided facial droop. HPI Narrative TAYLA ALBARRAN, is a 62 F came to ED after she noted left lip/facial droop about 6 AM this morning. She reached to ER 5 hours afterwards. She further said about 3 PM yesterday she felt some funny sensation over her left face but did not note drooping. No headache no visual change. No new weakness or fever. She has history of MS diagnosed in 1988 with chronic bilateral lower extremity weakness right more than left. For last 8 years he is noticing increased weakness with problem in balance and equilibrium. She also had fall in the past although not recently. She further states that she has loss of cartilage of the knee joints. Denies paresthesia, numbness or tingling. In ED vitals were in acceptable limit. Stroke alert was called in ED and [facility] teleneurologist was consulted. NIH stroke scale 1. tPA was not given because of outside time window. Recommended CTA head and neck, MRI with and without contrast and echo and full stroke work-up. [facility] Medical History Multiple sclerosis Home Medications NK 01/17/23 [History Last Taken Unknown] Allergy/AdvReac Type Severity Reaction Status Date / Time trifluoperazine Allergy Other Verified 01/26/20 19:07 [From Stelazine] Social History Smoking Status: Former smoker ROS ROS Narrative Constitutional: Reports chronic weakness and fatigue. No fever HEENT: Reports systems reviewed and no addt'l complaints, except as documented Respiratory/Chest: No acute shortness of breath or respiratory distress or wheezing. CVS: No chest pain or shortness of breath. No previous CA. Gastrointestinal: Denies coffee ground emesis, hematemesis or vomiting Genitourinary: Denies burning urination or new urinary tract symptoms. Denies bladder incontinence Musculoskeletal: Denies acute joint pain or limited range of motion. No acute injury Neurologic: Denies seizure-like symptoms. MS admission HPI skin: No ulcer. No rash Endocrinology: Reports systems reviewed and no addt'l complaints, except as documented Hematologic/Lymphatic: Reports systems reviewed and no addt'l complaints, except as documented Rest 14 ROS are negative except as mentioned in HPI Vital Signs Vital Signs Vital Signs: 01/17/23 11:10 01/17/23 11:27 01/17/23 11:29 Temperature 97.8 F Temperature Source Temporal Pulse Rate 101 H Respiratory Rate 20 H Blood Pressure 149/87 H Blood Pressure Mean 107 Pulse Ox 97 95 Oxygen Delivery Method Room Air Room Air 01/17/23 11:45 Temperature Temperature Source Pulse Rate 84 Respiratory Rate 19 H Blood Pressure 154/100 H Blood Pressure Mean 118 Pulse Ox 97 Oxygen Delivery Method Room Air Weight Weight: 131 lb 2.801 oz Body Mass Index (BMI) 22.5 Physical Exam Narrative General: Alert, Oriented x3, Cooperative HEENT: Atraumatic, PERRLA, EOMI, Normocephalic Oral: Oral mucosa moist. No Gingival or Mucosal Lesions/ Ulcerations Neck: Supple, No JVD, Negative Carotid Bruits Lungs: Air entry diminished in bilateral lung bases. No crepitation/rhonchi Cardiovascular: Regular rate, Regular Rhythm, Normal S1, Normal S2, No murmurs Abdomen: Bowel Sounds Present, Soft, Non Tender, Non-Distended : No renal angle tenderness. No suprapubic tenderness. Extremities: No edema, Capillary Refill Less than 3 Seconds Skin: No rashes, No breakdown Musculoskeletal: Weakness of bilateral lower extremity right more than left, 4/5 at hip and knee joints. ROM full. Spine: Weakness of pelvic girdle and back muscles, difficulty in sitting up from supine position without support. No Tenderness to Palpation of Joints or Extremities Neurological: Left-sided facial droop.Left unilateral upper and lower face paralysis, 3+. No change in sensation. Psych/Mental Status: Normal Affect, Appropriate. Results Lab / Micro Data 01/17/23 11:30 01/17/23 11:30 Labs: Laboratory Results - last 24 hr 01/17/23 11:28: POC Glucose 85 01/17/23 11:30: WBC 11.1 H, RBC 4.53, Hgb 14.5, Hct 43.4, MCV 95.8, MCH 32.0, MCHC 33.4, RDW Std Deviation 49.3 H, RDW Coeff of [place] 14.0, Plt Count 463 H, MPV 9.3, Immature Gran % (Auto) 0.500, Neut % (Auto) 66.8, Lymph % (Auto) 23.5, [place] % (Auto) 7.1, Eos % (Auto) 0.9, Baso % (Auto) 1.2 H, Absolute Neuts (auto) 7.4, Absolute Lymphs (auto) 2.60, Nucleated RBC % 0, PT 12.8, INR 1.0, APTT 27.6, Sodium 141, Potassium 3.7, Chloride 109 H, Carbon Dioxide 30.0, Anion Gap 2 L, BUN 14, Creatinine 0.62, Estim Creat Clear Calc 79.16, Est GFR (MDRD) Af Amer 125, Est GFR (MDRD) Non-Af 103, BUN/Creatinine Ratio 22.6 H, Glucose 88, Calcium 9.4, Troponin I High Sens [address] 01/17/23 11:15 IMPRESSION: 1. Chronic ischemic and involutional changes of the brain. 2. Concern for stroke/positive symptomatology should be further evaluated with CT brain perfusion/CTA or MRI of the brain for further assessment. N.B. : The above Results were Read Back by Cody Rios MD to Wally Alva DO, and understanding confirmed on 01/17/2023 11:44:28 (ET). Electronically Signed: Cody Rios MD at 11:45 EDT , ADDENDUM: 01/17/23 1152 IMPRESSION: 1. Chronic ischemic and involutional changes of the brain. 2. Concern for stroke/positive symptomatology should be further evaluated with CT brain perfusion/CTA or MRI of the brain for further assessment. N.B. : The above Results were Read Back by Cody Rios MD to Wally Alva DO, and understanding confirmed on 01/17/2023 11:44:28 (ET). Electronically Signed: Cody Rios MD at 11:45 EDT , Head/Neck CTA 01/17/23 11:15 IMPRESSION: 1. There is no demonstrated aneurysm of the [place]. There is no major vessel occlusion or hemodynamically significant stenosis. 2. Normal bilateral cervical carotid and vertebral arteries. N.B. : The above Results were Read Back by Cody Rios MD to Wally Alva DO, and understanding confirmed on 01/17/2023 11:47:22 (ET). Electronically Signed: Cody Rios MD at 11:49 EDT , ADDENDUM: 01/17/23 1155 IMPRESSION: 1. There is no demonstrated aneurysm of the [place]. There is no major vessel occlusion or hemodynamically significant stenosis. 2. Normal bilateral cervical carotid and vertebral arteries. N.B. : The above Results were Read Back by Cody Rios MD to Wally Alva DO, and understanding confirmed on 01/17/2023 11:47:22 (ET). Electronically Signed: Cody Rios MD at 11:49 EDT , Assessment & Plan Assessment/Plan (1) Multiple sclerosis: (2) Stroke determined by clinical assessment: PLAN: Plan Mrs. 62-year-old female is being admitted for concern of possible stroke. 1. Left-sided upper and lower face facial palsy, concern of a stroke/lower motor neuron palsy or exacerbation of MS: Patient is being admitted in PCU. Initial evaluation of CT head and CTA head and neck did not show acute change. No demonstrated activity of cervical pelvis or major vessel occlusion/LVO. Normal bilateral cervical carotid arteries and vertebral arteries. [facility] teleneurologist was consulted and recommended MRI brain with and without cont rast. 2D echo ordered. PT, OT, speech therapy/swallow evaluation and management, nursing NIH stroke scale, BP and glucose monitoring and control as per stroke protocol. TSH, A1c and fasting lipid profile tomorrow AM. Twelve- lead EKG shows normal sinus rhythm. 2. History of MS diagnosed in 1988: Patient saw neurologist in 1998 after they did not see neurologist. She is not on a specific medication for MS. Patient will need outpatient neurologist follow-up after discharge. Serum magnesium and phosphorus ordered. Laboratory Results 01/17/23 11:28: POC Glucose 85 01/17/23 11:30: WBC 11.1 H, RBC 4.53, Hgb 14.5, Hct 43.4, MCV 95.8, MCH 32.0, MCHC 33.4, RDW Std Deviation 49.3 H, RDW Coeff of [place] 14.0, Plt Count 463 H, MPV 9.3, Immature Gran % (Auto) 0.500, Neut % (Auto) 66.8, Lymph % (Auto) 23.5, [place] % (Auto) 7.1, Eos % (Auto) 0.9, Baso % (Auto) 1.2 H, Absolute Neuts (auto) 7.4, Absolute Lymphs (auto) 2.60, Nucleated RBC % 0, PT 12.8, INR 1.0, APTT 27.6, Sodium 141, Potassium 3.7, Chloride 109 H, Carbon Dioxide 30.0, Anion Gap 2 L, BUN 14, Creatinine 0.62, Estim Creat Clear Calc 79.16, Est GFR (MDRD) Af Amer 125, Est GFR (MDRD) Non-Af 103, BUN/Creatinine Ratio 22.6 H, Glucose 88, Calcium 9.4, Magnesium Pending, Troponin I High Sens 4 Clinical Impression(s) from Imaging Studies Brain CT 01/17/23 11:15 IMPRESSION: 1. Chronic ischemic and involutional changes of the brain. 2. Concern for stroke/positive symptomatology should be further evaluated with CT brain perfusion/CTA or MRI of the brain for further assessment. Head/Neck CTA 01/17/23 11:15 IMPRESSION: 1. There is no demonstrated aneurysm of the [place]. There is no major vessel occlusion or hemodynamically significant stenosis. 2. Normal bilateral cervical carotid and vertebral arteries. Chest X-Ray 01/17/23 11:50 IMPRESSION: Normal x-ray examination of the chest. Electronically Signed: Cody Rios MD at 12:59 EDT , Charges/Coding Visit Charges Inpatient E&M: 52767 Init Hosp L3
--- NOTE | 2023-01-17 13:00 | ED.RN ---
Hospitalist in room
[2023-01-17 13:27] LABS: Magnesium 2.3 mg/dL (1.6-2.6)
[2023-01-17 13:45] LABS: Phosphorus 3.2 mg/dL (2.5-4.9)
[2023-01-17 14:27] LABS: Erythrocyte Sedimentation Rate 16 mm/hr (0-30)
[2023-01-17] MEDS: 0.9% Saline Lock 10 ML Syringe IV (15:20)
[2023-01-17] MEDS: 0.9% Normal Saline 1,000 ML 50 ML IV (15:21)
[2023-01-17] MEDS: Aspirin 81 MG TAB.CHEW PO (15:25)
[2023-01-17] MEDS: Atorvastatin Calcium 40 MG Tablet PO (20:43)
[2023-01-17] MEDS: Heparin Injection (Vial) 5,000 UNIT/ML VIAL 5000 UNIT SC (20:43)
[2023-01-18 00:30] VITALS: BP 116/50; PULSE 76; RESP 18; TEMP 36.6; O2SAT 96
[2023-01-18 04:30] VITALS: BP 128/70; PULSE 78; RESP 18; TEMP 36.3; O2SAT 95
--- NOTE | 2023-01-18 05:55 | ECHOD_ITS ---
Reason For Study: CVA, MULTIPLE SCLEROSIS Procedure This was a 2D Doppler, Color Flow transthoracic echocardiogram. Exam performed portable in patient room. Left Ventricle Normal left ventricle. The estimated ejection fraction is 60-65 %. Right Ventricle Normal right ventricle. Normal systolic function. Atria Normal left atrium. Normal right atrium. Mitral Valve The mitral valve is structurally normal. No prolapse or stenosis seen. Mild (1+) mitral valve insufficiency. Tricuspid Valve Normal tricuspid valve. Pulmonic Valve The pulmonic valve is not well visualized. Great Vessels Normal aortic root. Pericardium/Pleural No pericardial effusion. MMode/2D Measurements & Calculations LVIDd: 3.4 cm IVSd: 0.86 cm Ao root diam: 2.7 cm LVIDs: 2.6 cm LVPWd: 0.90 cm RVDd: 2.8 cm FS: 24.6 % LAV(MOD-sp2): 22.7 ml LVAd ap4: 21.2 cm2 LVAd ap2: 18.7 cm2 LVLd ap4: 6.6 cm LVLd ap2: 6.6 cm EDV(MOD-sp4): 57.0 ml EDV(MOD-sp2): 43.0 ml EDV(sp4-el): 57.2 ml EDV(sp2-el): 44.9 ml LVAs ap4: 9.7 cm2 LVAs ap2: 9.2 cm2 LVLs ap4: 5.5 cm LVLs ap2: 4.5 cm ESV(MOD-sp4): 16.4 ml ESV(MOD-sp2): 16.0 ml ESV(sp4-el): 14.6 ml ESV(sp2-el): 15.9 ml EF(MOD-sp4): 71.2 % EF(MOD-sp2): 62.7 % EF(sp4-el): 74.4 % SV(MOD-sp4): 40.6 ml SV(MOD-sp2): 27.0 ml SV(sp4-el): 42.5 ml LA dimension(2D): 2.7 cm TAPSE: 2.5 cm Time Measurements MV dec time: 0.21 sec Doppler Measurements & Calculations MV E max artemio: 86.0 cm/sec Lat Peak E' Artemio: 9.6 cm/sec Med Peak E' Artemio: 8.9 cm/sec MV A max artemio: 105.6 cm/sec E/E' lat: 8.9 E/E' med: 9.7 MV E/A: 0.81 Ao V2 max: 139.0 cm/sec LV V1 max: 102.9 cm/sec PA V2 max: 107.1 cm/sec Ao max P.7 mmHg LV V1 max P.2 mmHg Ao V2 mean: 94.1 cm/sec LV V1 mean P.4 mmHg Ao mean P.1 mmHg LV V1 mean: 72.9 cm/sec Ao V2 VTI: 30.5 cm LV V1 VTI: 22.1 cm AV (velocity ratio): 0.72 ECHO/Echo Complete Interpretation Summary The estimated ejection fraction is 60-65 %. Normal LV systolic function Mitral anterior valve leaflet redundancy With mild mitral valve prolapse Mild MR. Ordering Physician: Jose Eduardo Richard Referring Physician: RONY PCP Performed By: Fang Jeffers RVT, RDCS and Student
[2023-01-18 07:34] LABS: Cholesterol 151 mg/dL (200); High Density Lipoprotein 64 mg/dL; Thyroid Stim Hormone (TSH) 1.68 uIU/mL (0.358-3.74); Triglycerides 97 mg/dL; Very Low Density Lipoprotein 19 mg/dL (5-40)
[2023-01-18 08:02] VITALS: O2SAT 96
[2023-01-18 08:07] LABS: Hemoglobin A1c 5.1 % (3.8-5.6)
--- NOTE | 2023-01-18 08:11 | DCINST_ITS ---
Discharge Instructions Diet Discharge Diet: No restrictions Activity Discharge Activity: Return to Normal Activity Weight Bearing Status: Weight bearing as tolerated Dressing / Incision Call your doctor if you observe: Fever of 101 or Higher, Coldness, Increased Pain, Numbness or Tingling, Change in Color, Inability to urinate, Inability to have a bowel movement, Using more than 1 pad per hour, Shortness of breath, Dizziness, Fainting spells, Swelling in the ankles, Chest pain, Prolonged hiccupping, Increased palpitations (irregular heartbeat) and Calf discomfort Follow Up Care When: IN 2 WEEKS Test Results: Test results from this visit will be discussed in further detail at your follow- up appointment, if applicable. Discharge Plan Admission Admit Date/Time: 01/17/23 12:32 Primary Reason for Your Visit: Left facial droop Attending Provider: Jose Eduardo Richard Primary Care Provider: Provider,Ed Physician Discharge Orders/Prescriptions Prescriptions: New acetaminophen 325 mg Tablet 650 mg PO Q4H PRN PRN (Reason: HEADACHE) Qty: 0 0RF Rx Instructions: OTC Referrals / Follow Up: Gustabo Coughlin MD [Non-Staff -Ordering Privileges] - Within 2 Weeks Provider,Ed Physician [Primary Care Provider] - Disposition Disposition (needs filled in before D/C Order can be placed): Home, Self Care
[2023-01-18 08:30] VITALS: BP 131/62; PULSE 83; RESP 16; TEMP 37.1; O2SAT 97
[2023-01-18] MEDS: Heparin Injection (Vial) 5,000 UNIT/ML VIAL 5000 UNIT SC (09:03)
[2023-01-18] MEDS: Aspirin E.C. 81 MG Tablet PO (09:03)
[2023-01-18] MEDS: 0.9% Normal Saline 1,000 ML 50 ML IV (09:08)
--- NOTE | 2023-01-18 10:00 | MRI_ITS ---
EXAM: MR HEAD WITHOUT AND WITH INTRAVENOUS CONTRAST CLINICAL INDICATION: concern of stroke -- H/o MS TECHNIQUE: Multiplanar and multisequence MR images of the brain were obtained without and with intravenous contrast. CONTRAST: 12 mL of IV Clariscan. COMPARISON: CT head without contrast 05/20/2023. FINDINGS: BRAIN AND EXTRA-AXIAL SPACES: Following IV contrast administration, there is a small rim-enhancing lesion in the left posterior periventricular white matter suspicious for active MS plaque. No other enhancing lesions intra-axially and extra-axially. Multiple T2 FLAIR hyperintensity foci in the periventricular white matter. Several of them are perpendicular to the bodies of the lateral ventricles. No intra- or extra-axial hemorrhage. No intracranial mass or mass effect. Posterior fossa structures are unremarkable. No hydrocephalus. Basal cisterns are patent. No diffusion restriction to suspect acute or subacute ischemic infarct. SELLA: Unremarkable. Normal sella turcica, pituitary gland, infundibular stalk, optic chiasm and hypothalamus. AUDITORY SYSTEM: Unremarkable. The internal auditory canals are patent. BONES/JOINTS: Unremarkable. No discrete lytic or blastic abnormalities. SINUSES: Unremarkable as visualized. Clear. MASTOID AIR CELLS: Unremarkable as visualized. Clear. ORBITS: Unremarkable as visualized. Both globes, extraocular muscles, optic nerves and retrobulbar fat appear unremarkable. VASCULATURE: Unremarkable as visualized. Normal flow voids in the major intracranial circulation. MRI/Brain W/WO Contrast IMPRESSION: 1. Minimally rim-enhancing active MS plaque in the left posterior periventricular white matter. 2. No MRI evidence of acute or subacute ischemic infarct. Electronically Signed: Vj Morales MD at 12:42 EDT ,
[2023-01-18 12:30] VITALS: BP 132/66; PULSE 76; RESP 16; TEMP 36.8; O2SAT 96
--- NOTE | 2023-01-18 14:25 | CHAPLAIN ---
Type of Pastoral Visit _x__ Initial Visit ___ Follow-up Visit ___ On-call Visit ___ General Patient Visit ___ Spiritual Assessment ___ Family Conference ___ Bereavement ___ Rapid Response ___ Code Blue ___ Other (describe below) Pastoral Care Referral From _x__ Patient ___ Family ___ Nurse ___ Physician ___ Plastics Supervisor ___ Obstetrics/Gynecology Nurse ___ Other (describe below) Sacrament/Intervention _x__ Active listening ___ Anointing ___ Buddhism ___ Bereavement ___ Communion ___ Aylin exploration ___ ___ Life review _x__ Prayer ___ Reconciliation ___ Sacrament of Sick ___ Supportive presence ___ Wedding ___ Other (describe below) Pastoral Comments patient has several family members in the room; pt is eating lunch after having tests done; pt is welcoming but gives no needs or concerns; pt does welcome a prayer and the offer of support;
--- NOTE | 2023-01-18 14:39 | DS.PCM_ITS ---
Providers Date of Admission: 01/17/23 Date of Discharge: 01/18/23 Primary Care Physician: ED Physician Provider Reason For Visit: TIA WITH MS Diagnosis Discharge Diagnosis (1) Multiple sclerosis: Status: Acute Code(s): G35 - Multiple sclerosis (2) Stroke determined by clinical assessment: Status: Acute Code(s): I63.9 - Cerebral infarction, unspecified Plan Mrs. 62-year-old female is being admitted for concern of possible stroke. 1. Left-sided upper and lower face facial palsy, concern of a stroke/lower motor neuron palsy or exacerbation of MS: Patient is being admitted in PCU. Initial evaluation of CT head and CTA head and neck did not show acute change. No demonstrated activity of cervical pelvis or major vessel occlusion/LVO. Normal bilateral cervical carotid arteries and vertebral arteries. [facility] tel eneurologist was consulted and recommended MRI brain with and without contrast. PT, OT, speech therapy/swallow evaluation and management, nursing NIH stroke scale, BP and glucose monitoring and control as per stroke protocol. TSH, A1c and fasting lipid profile tomorrow AM. Twelve-lead EKG shows normal sinus rhythm. 01/18: MRI brain with and without contrast shows rim-enhancing lesion in left posterior periventricular white matter suspicious for active MS plaque. Patient still has left sided complete facial paralysis. MRI negative for acute or subacute ischemic infarct. Patient does not need aspirin or statin. Fasting profile in normal limit. TSH 1.68. A1c 5.1. Serum magnesium and phosphorus level within normal limit. I discussed the MRI finding with the patient and she agreed with seeing Gustabo Corrales the neurologist as an outpatient. Follow-up in 2 weeks. Patient also has headache for which Tylenol ordered. 2D echo report pending 2. History of MS diagnosed in 1988: Patient saw neurologist in 1998 after they did not see neurologist. She is not on a specific medication for MS. Patient will need outpatient neurologist follow-up after discharge. As mentioned above. Discharge medication reconciliation done. Discharge follow-up instructions completed. Discharge process discussed with the patient and all questions were answered to patient's satisfaction. Total time spent, exact 35 minutes on discharge meds reconciliation, examination, coordination of care with nurses and ancillary staff, review of imaging and blood test and discussion with the patient on follow-up instructions. Laboratory Results 01/18/23 06:11: Hemoglobin A1c 5.1, Triglycerides 97, Cholesterol 151, LDL Cholesterol 68, VLDL Cholesterol 19, HDL Cholesterol 64, TSH 1.68 Clinical Impression(s) from Imaging Studies Brain CT 01/17/23 11:15 IMPRESSION: 1. Chronic ischemic and involutional changes of the brain. 2. Concern for stroke/positive symptomatology should be further evaluated with CT brain perfusion/CTA or MRI of the brain for further assessment. Head/Neck CTA 01/17/23 11:15 IMPRESSION: 1. There is no demonstrated aneurysm of the [place]. There is no major vessel occlusion or hemodynamically significant stenosis. 2. Normal bilateral cervical carotid and vertebral arteries. Chest X-Ray 01/17/23 11:50 IMPRESSION: Normal x-ray examination of the chest. Electronically Signed: Cody Rios MD at 12:59 EDT , Medications at Discharge Home Medications acetaminophen 325 mg tablet 650 mg (2 x 325 mg) PO Q4H PRN PRN HEADACHE #0 tabs 01/18/23 Physical Exam Narrative Seen and examined. Mild headache after echo was done. General: Alert, Oriented x3, Cooperative HEENT: Atraumatic, PERRLA, EOMI, Normocephalic Oral: Oral mucosa moist. No Gingival or Mucosal Lesions/ Ulcerations Neck: Supple, No JVD, Negative Carotid Bruits Lungs: Air entry diminished in bilateral lung bases. No crepitation/rhonchi Cardiovascular: Regular rate, Regular Rhythm, Normal S1, Normal S2, No murmurs Abdomen: Bowel Sounds Present, Soft, Non Tender, Non-Distended : No renal angle tenderness. No suprapubic tenderness. Extremities: No edema, Capillary Refill Less than 3 Seconds Skin: No rashes, No breakdown Musculoskeletal: Weakness of bilateral lower extremity right more than left, 4/5 at hip and knee joints chronic. ROM full. Spine: Weakness of pelvic girdle and back muscles, difficulty in sitting up from supine position without support chronic. No Tenderness to Palpation of Joints or Extremities Neurological: Left-sided unilateral upper and lower face paralysis. No change in sensation. Psych/Mental Status: Normal Affect, Appropriate. Weight / BMI Weight Weight: 126 lb 12.253 oz Body Mass Index (BMI) 23.1 ABG / Lab / Microbiology Data 01/17/23 11:30 01/17/23 11:30 Laboratory: Laboratory Results - last 24 hr 01/18/23 06:11: Hemoglobin A1c 5.1, Triglycerides 97, Cholesterol 151, LDL Cholesterol 68, VLDL Cholesterol 19, HDL Cholesterol 64, TSH 1.68 Radiography Diagnostic Testing: Radiology Impression Brain MRI 01/18/23 10:00 IMPRESSION: 1. Minimally rim-enhancing active MS plaque in the left posterior periventricular white matter. 2. No MRI evidence of acute or subacute ischemic infarct. Electronically Signed: Vj Morales MD at 12:42 EDT , D/C Instructions Discharge Diet: No restrictions Weight Bearing Status: Weight bearing as tolerated Call your doctor if you observe: Fever of 101 or Higher, Coldness, Increased Pain, Numbness or Tingling, Change in Color, Inability to urinate, Inability to have a bowel movement, Using more than 1 pad per hour, Shortness of breath, Dizziness, Fainting spells, Swelling in the ankles, Chest pain, Prolonged hiccupping, Increased palpitations (irregular heartbeat) and Calf discomfort When: IN 2 WEEKS Meaningful Use Info Meaningful Use Diagnoses (Choose all that apply): None applicable Discharge Plan Admission Admit Date/Time: 01/17/23 12:32 Primary Reason for Your Visit: Left facial droop Attending Provider: Jose Eduardo Richard Primary Care Provider: Provider,Ed Physician Discharge Orders/Prescriptions Prescriptions: New acetaminophen 325 mg Tablet 650 mg PO Q4H PRN PRN (Reason: HEADACHE) Qty: 0 0RF Rx Instructions: OTC Referrals / Follow Up: Gustabo Coughlin MD [Non-Staff -Ordering Privileges] - Within 2 Weeks Provider,Ed Physician [Primary Care Provider] - Disposition Disposition (needs filled in before D/C Order can be placed): Home, Self Care Charges/Coding Visit Charges Inpatient E&M: 22942 Disch Hosp >30min
--- NOTE | 2023-01-18 14:58 | PHA.DC.MR.R ---
Pharmacy [place] Med Reconciliation Pharmacy Service has performed discharge medication reconciliation for this patient. The patient's discharge medication list was reviewed for discrepancies and discrepancies were resolved. Medications at Discharge Home Medications acetaminophen 325 mg tablet 650 mg (2 x 325 mg) PO Q4H PRN PRN HEADACHE #0 tabs 01/18/23
[2023-01-18] MEDS: Acetaminophen 325 MG Tablet 650 MG PO (15:18)
--- NOTE | 2023-01-18 15:40 | CASEMGMT ---
Patient had order for discharge. RN CM in to discuss needs at discharge. Patient and family decline needs at this time. Patient had no further questions or concerns at this time.
[2023-01-18 16:00] VITALS: BMI 23.1
[2023-01-18 17:00] VITALS: BMI 23.1
== END 2023-01-18 14:39 | disposition home or self-care (01) ==
LOC: ED 12:21 → PCU 12:51
PROVIDERS: Admitting Provider Internal Medicine; Emergency Provider Emergency Medicine; Visit Provider Internal Medicine
DX: G51.0 Bell's palsy (principal); G35 Multiple sclerosis; Z87.891 Personal history of nicotine dependence; R29.701 NIHSS score 1; I34.0 Nonrheumatic mitral (valve) insufficiency
CPT/HCPCS: 36415; 70450; 70496; 70498; 70553; 71045; 80048; 80061; 82962; 83036; 83735; 84100; 84443; 84484; 85025; 85610; 85652; 85730; 86140; 92523; 93005; 93306; 94668; 94762; 96372; 99221; 99284; A9575; J7030; Q9967; A4216; G0378